=== PATIENT | female | born 1970 | race Caucasian/White ===

== ENCOUNTER 2017-11-01 07:37 | Inpatient (IN) | payer OTHER ==
[~2017-11-01] VITALS: Ht 149.9 cm; Wt 98.9 kg
[2017-11-01] MEDS ORDERED: SINGULAIR 10MG10 MG (07:46)
[2017-11-01] MEDS ORDERED: ZANTAC300 MG (07:47)
[2017-11-07] MEDS ORDERED: CIPRO100 MG PO (08:55)
[2017-11-07] MEDS ORDERED: FLAGYL500MG PO (08:55)
[2017-11-07] MEDS ORDERED: CIPRO500 MG PO (18:31)
== END 2017-11-07 11:42 | disposition home or self-care (01) | DRG 392 ==
LOC: ER 07:37 → MEDJ 18:09
PROC: BU4CZZZ Ultrasonography of Uterus and Ovaries (ICD-10-PCS; principal; 2017-11-01)
PROC: BW25ZZZ Computerized Tomography (CT Scan) of Chest, Abdomen and Pelvis (ICD-10-PCS; 2017-11-01)
DX: K57.32 Diverticulitis of large intestine without perforation or abscess without bleeding (principal); K21.9 Gastro-esophageal reflux disease without esophagitis; J45.998 Other asthma; E66.01 Morbid (severe) obesity due to excess calories; G47.33 Obstructive sleep apnea (adult) (pediatric); D35.01 Benign neoplasm of right adrenal gland

== ENCOUNTER 2018-01-03 12:11 | Emergency (ER) | payer OTHER ==
[~2018-01-03] VITALS: Ht 149.9 cm; Wt 97.5 kg
[~2018-01-03 12:11] MED LIST: CIPRO100 MG PO; CIPRO500 MG PO; FLAGYL500MG PO; SINGULAIR 10MG10 MG; ZANTAC300 MG
[2018-01-03] MEDS ORDERED: DOLOGESIC 500-1 EACH PO (15:56)
== END 2018-01-03 16:28 | disposition home or self-care (01) ==
LOC: ER 12:11
DX: M62.838 Other muscle spasm (principal)